=== PATIENT | male | born 1980 | race Caucasian/White ===

== ENCOUNTER → 2019-03-07 13:59 | Outpatient (BNVA) | payer OTHER, SELFPAY | PROVIDERS: Visit Provider Nurse Practitioner Family | DX: Z02.89 Encounter for other administrative examinations (principal); N39.0 Urinary tract infection, site not specified | CPT/HCPCS: 80305 ==

== ENCOUNTER → 2019-06-21 00:01 | Outpatient (BNVA) | payer OTHER, SELFPAY | PROVIDERS: Visit Provider Nurse Practitioner Family | DX: Z12.5 Encounter for screening for malignant neoplasm of prostate (principal); R53.83 Other fatigue; E34.9 Endocrine disorder, unspecified; Z79.899 Other long term (current) drug therapy; Z13.6 Encounter for screening for cardiovascular disorders; E55.9 Vitamin D deficiency, unspecified | CPT/HCPCS: 80053; 80061; 82306; 83036; 83721; 84402; 84403; 84443; 85025; G0103 ==

== ENCOUNTER → 2019-09-03 09:04 | Outpatient (BNVA) | payer OTHER, SELFPAY | PROVIDERS: Visit Provider Nurse Practitioner Family | DX: E29.0 Testicular hyperfunction (principal); J30.89 Other allergic rhinitis | CPT/HCPCS: 36415; 80053; 84403; 85025 ==

== ENCOUNTER 2019-09-06 16:01 | Outpatient (CLI) | payer OTHER, SELFPAY ==
--- NOTE | 2019-09-06 16:45 | MRR_ITS ---
PROCEDURE INFORMATION: Exam: MR Cervical Spine Without Contrast Exam date and time: 09/06/2019 4:51 PM Age: 38 years old Clinical indication: Pain; Cervicalgia; Patient HX: Injuried in 2003, jumped fence, landed wrong; Additional info: M54.2 cervicalgia TECHNIQUE: Imaging protocol: Multiplanar magnetic resonance images of the cervical spine without contrast. COMPARISON: No relevant prior studies available. FINDINGS: Craniocervical junction appears normal. The cervical spine is normal in position and alignment. Cervical spinal cord signal is normal without intrinsic or extrinsic lesions. Disc heights are well-preserved. No evidence of dehydration is seen. Vertebral body marrow signal is unremarkable. No evidence prevertebral or interspinous ligamentous edema. Axial images: C2-C3: There is no significant disc bulge. There is no significant cord compression. There is no neural foraminal or spinal stenosis. C3-C4: There is no significant disc bulge. There is no significant cord compression. There is no neural foraminal or spinal stenosis. C4-C5: There is very small approximately 1 mm focal central protrusion. There is no significant cord compression. There is no neural foraminal or spinal stenosis. C5-C6: There is no significant disc bulge. There is no significant cord compression. There is no neural foraminal or spinal stenosis. C6-C7: There is no significant disc bulge. There is no significant cord compression. There is no neural foraminal or spinal stenosis. C7-T1: There is no significant disc bulge. There is no significant cord compression. There is no neural foraminal or spinal stenosis. MR/MR cervical spin wo con* [id number] IMPRESSION: Essentially unremarkable.
--- NOTE | 2019-09-06 17:30 | MRR_ITS ---
PROCEDURE INFORMATION: Exam: MR Thoracic Spine Without Contrast Exam date and time: 09/06/2019 4:51 PM Age: 38 years old Clinical indication: Pain in thoracic spine; Patient HX: Injuried in 2003, jumped fence, landed wrong; Additional info: M48.04 spinal stenosis, thoracic region TECHNIQUE: Imaging protocol: Multiplanar magnetic resonance images of the thoracic spine without intravenous contrast. COMPARISON: No relevant prior studies available. FINDINGS: Vertebrae: There are multiple small Schmorl's nodes. There is slight anterior wedging L1 with mild superior endplate compression. There is less marked anterior wedging T7 through T10. There is no marrow edema and these are nonacute. No vertebral subluxation. Spinal cord: Spinal cord terminus L1-L2 and appears T1-T2: No significant disc disease. No significant spinal canal stenosis. T2-T3: No significant disc disease. No significant spinal canal stenosis. T3-T4: There is approximately 1 mm right paracentral protrusion. There is no evidence of spinal stenosis or neural foraminal narrowing. T4-T5: There is approximately 1.8 mm left paracentral protrusion with mild left ventral cord flattening. No overall spinal stenosis or neural foraminal narrowing. T5-T6: No significant disc disease. No significant spinal canal stenosis. T6-T7: There is less than 2 mm central protrusion. There is no cord compression. There is no evidence of spinal stenosis or neural foraminal narrowing. T7-T8: There is approximately 1 mm right paracentral protrusion. There is no cord compression. There is no evidence of spinal stenosis or neural foraminal narrowing. T8-T9: Approximately 1 mm central disc protrusion. There is no cord compression. There is no evidence of spinal stenosis or neural foraminal narrowing. T9-T10: Approximately 1 mm right subarticular recess protrusion. There is no cord compression. There is no evidence of spinal stenosis or neural foraminal narrowing. T10-T11: No significant disc disease. No significant spinal canal stenosis. T11-T12: No significant disc disease. No significant spinal canal stenosis. Soft tissues: No evidence prevertebral or interspinous ligamentous edema. There is approximately 7 mm T2 hyperintense rounded area at the T7-T8 level in the right intracostal space, axial image 29. This could be a cyst or small cystic mass. MR/MR thoracic spin wo con* [id number] IMPRESSION: 1. No evidence of acute fracture. No evidence of ligament injury or edema. 2. Small rounded T2 hyperintense lesion right T7-T8 level intracostal space T2 hyperintense lesion may be a cyst or small cystic mass such as neurogenic tumor. 3. Multiple small disc protrude largest T4-T5 causes slight left ventral flattening but no spinal stenosis or neural foraminal narrowing.
== END 2019-09-06 16:02 | disposition home or self-care (01) ==
LOC: RADSHAW 16:08
PROVIDERS: PCP Nurse Practitioner Family; Visit Provider Nurse Practitioner Family
DX: M54.2 Cervicalgia (principal); M48.04 Spinal stenosis, thoracic region; M51.24 Other intervertebral disc displacement, thoracic region
CPT/HCPCS: 72141; 72146

== ENCOUNTER → 2019-09-23 12:00 | Outpatient (BNVA) | payer OTHER, SELFPAY | PROVIDERS: PCP Nurse Practitioner Family; Visit Provider Nurse Practitioner Family | DX: D75.1 Secondary polycythemia (principal) | CPT/HCPCS: 80500; 82607; 82746; 83550; 85025 ==

== ENCOUNTER → 2019-10-24 12:06 | Outpatient (BNVA) | payer OTHER, SELFPAY | PROVIDERS: PCP Nurse Practitioner Family; Visit Provider Nurse Practitioner Family | DX: R03.0 Elevated blood-pressure reading, without diagnosis of hypertension (principal) | CPT/HCPCS: 80053; 84439; 84443; 84481 ==

== ENCOUNTER 2019-11-11 10:03 | Outpatient (CLI) | payer OTHER, SELFPAY ==
--- NOTE | 2019-11-11 10:15 | CT_ITS ---
WS: [id number] CT CHEST TECHNIQUE: Contrast enhanced CT of the chest with coronal and sagittal reformatted images. CLINICAL INFORMATION: ABNORMAL MRI, BACK PAIN ,THORACIC COMPARISON: None. DLP: 1077.[address] scans at [facility] use at least one of these dose optimization techniques: automat ed exposure control; mA and/or kV adjustment per patient size (includes targeted exams where dose is matched to clinical indication); or iterative reconstruction. FINDINGS: Mild chronic emphysematous changes. Normal caliber thoracic aorta. No mediastinal or hilar lymphadeno sindy. Normal thyroid gland. No axillary lymphadenopathy. Adrenal glands are normal. Diffuse fatty infiltration of the liver. Normal GE junction. No axillary l ymphadenopathy. Mild thoracic kyphosis. Mild spondylitic changes. No acute compression fractures. No significant spin al canal narrowing. CT/CT chest w con* [id number] IMPRESSION: 1. Mild thoracic kyphosis. No acute compression. 2. No high-grade central canal stenosis. 3. A few Schmorl's nodes in the mid and lower thoracic spine. 4. No bony abnormalities to correspond to the previously described small T2 hy perintense lesion at T7-8 likely benign. 5. Lungs are well aerated. No acute pulmonary infiltrates. 6. No mediastinal or hilar lymphadenopathy.
[2019-11-11] MEDS: iohexol 300 mg/mL 100 mL Btl IV (10:58)
== END 2019-11-11 10:04 | disposition home or self-care (01) ==
PROVIDERS: Family Provider Nurse Practitioner Family; PCP Nurse Practitioner Family; Visit Provider Nurse Practitioner Family
DX: R93.89 Abnormal findings on diagnostic imaging of other specified body structures (principal); M40.204 Unspecified kyphosis, thoracic region; M51.44 Schmorl's nodes, thoracic region
CPT/HCPCS: 71260; Q9967

== ENCOUNTER → 2020-02-21 10:25 | Outpatient (BNVA) | payer OTHER, SELFPAY | PROVIDERS: Family Provider Nurse Practitioner Family; PCP Nurse Practitioner Family; Visit Provider Nurse Practitioner Family | DX: D75.1 Secondary polycythemia (principal); E34.9 Endocrine disorder, unspecified; E29.1 Testicular hypofunction | CPT/HCPCS: 84402; 84403; 85025 ==

== ENCOUNTER → 2020-12-28 10:03 | Outpatient (BNVA) | payer OTHER, SELFPAY | PROVIDERS: Family Provider Nurse Practitioner Family; PCP Nurse Practitioner Family; Referring Provider Nurse Practitioner; Visit Provider Specialist | DX: M25.512 Pain in left shoulder (principal) | CPT/HCPCS: 73030 ==

== ENCOUNTER 2021-01-26 14:28 | Outpatient (CLI) | payer OTHER, SELFPAY ==
--- NOTE | 2021-01-26 15:15 | MR_ITS ---
WS: [id number] MRI LEFT SHOULDER NONCONTRAST TECHNIQUE: Sagittal T2, coronal T1, T2 and proton density imaging. Axial gradient PDE imaging. CLINICAL INFORMATION: M25.519 - Pain in unspecified shoulder COMPARISON: None. FINDINGS: Moderate degenerative arthritis AC joint with synovial thickening and mild edema. Small amount of flu id in the AC joint. Minimal downsloping acromion. Slight subacromial spurring. Distal supraspinatus i s normal in appearance. Normal infraspinatus. Normal teres minor. Normal subscapularis tendon. Normal biceps tendon in the bicipital groove. Normal biceps labral anchor. Tiny intrasubstance tear involving the intra-articular biceps tendon. Ot herwise normal intra-articular biceps tendon. Subchondral cystic change involving the posterior infer ior glenoid. Degenerative arthritis glenohumeral joint. Glenoid labrum appears grossly normal. MR/MR shoulder LT wo con* [id number] IMPRESSION: 1. Moderate degenerative arthritis at the AC joint with mild edema and mild do wnsloping acromion. Slight subacromial spurring. 2. Normal rotator cuff. 3. Normal biceps tendon in the bicipital groove. 4. Tiny intrasubstance tear involving the intra-articular biceps tendon. 5. Normal biceps labral anchor. 6. Degenerative arthritis at the glenohumeral joint with subchondral cystic ch dean involving the posterior inferior glenoid.
--- NOTE | 2021-01-26 16:00 | MR_ITS ---
WS: [id number] MRI RIGHT SHOULDER NONCONTRAST TECHNIQUE: Sagittal T2, coronal T1, T2 and proton density imaging. Axial gradient PDE imaging. CLINICAL INFORMATION: M25.519 - Pain in unspecified shoulder COMPARISON: None. FINDINGS: Mild degenerative arthritis at the AC joint. Minimal downsloping acromion. Slight subacromial spurrin g. Tendinopathy in the distal supraspinatus. Normal infraspinatus. Normal teres minor. Normal subscap ularis. Normal biceps tendon in the bicipital groove. Normal subscapularis tendon. Normal biceps labral anchor. Glenoid labrum appears grossly normal.Subc hondral cystic change involving the posterior superior glenoid. MR/MR shoulder RT wo con* [id number] IMPRESSION: 1. Mild degenerative arthritis at the AC joint with mild downsloping acromion. Slight subacromial spurring. 2. Tendinopathy in the distal supraspinatus. Rotator cuff is otherwise normal in appearance. 3. Normal biceps tendon in the bicipital groove. Normal intra-articular biceps tendon. 4. Mild degenerative narrowing of the glenohumeral joint. Normal bone marrow s ignal in the glenoid and humeral head. 5. Subchondral cystic change involving the posterior superior glenoid.
== END 2021-01-26 14:29 | disposition home or self-care (01) ==
LOC: RADSHAW 14:32
PROVIDERS: Family Provider Nurse Practitioner Family; PCP Nurse Practitioner Family; Visit Provider Specialist
DX: M19.012 Primary osteoarthritis, left shoulder (principal); M19.011 Primary osteoarthritis, right shoulder; S46.212A Strain of muscle, fascia and tendon of other parts of biceps, left arm, initial encounter; X58.XXXA Exposure to other specified factors, initial encounter
CPT/HCPCS: 73221

== ENCOUNTER → 2021-02-15 13:58 | Outpatient (BNVA) | payer OTHER, SELFPAY | PROVIDERS: Family Provider Nurse Practitioner Family; PCP Nurse Practitioner Family; Referring Provider Nurse Practitioner; Visit Provider Podiatrist Foot & Ankle Surgery | DX: M25.572 Pain in left ankle and joints of left foot (principal); M25.872 Other specified joint disorders, left ankle and foot | CPT/HCPCS: 73610 ==

== ENCOUNTER 2021-03-22 09:09 | Outpatient (CLI) | payer OTHER, SELFPAY ==
--- NOTE | 2021-03-22 09:16 | MR_ITS ---
WS: [id number] MRI LEFT ANKLE NONCONTRAST TECHNIQUE: Sagittal proton density, sagittal STIR, axial proton density, axial T1, axial T2 fat sat, coronal proton density, coronal proton density fat sat, coronal T2 fat sat. CLINICAL INFORMATION: pain COMPARISON: Radiograph February 15, 2021 FINDINGS: Normal anatomic alignment. Normal ankle mortise. Chronic dystrophic calcification about the medial ma lleolus unchanged since prior radiograph. Normal talar dome. Small amount of edema in the medial mall eolus suspicious for tiny microavulsion fracture and/or contusion. No visualized bony fragments. Norm al lateral malleolus. Normal bone marrow signal in the calcaneus. Normal cuboid. Base of the 5th metatarsal is normal. Norm al navicular. Normal talonavicular articulation. Anterior process of the calcaneus is normal. Normal cuneiforms. Normal Achilles tendon. Tenosynovitis along the peroneal tendon sheaths. Normal extensor and flexor c ompartment tendons. Small ankle joint effusion. Normal plantar soft tissues. IMPRESSION 1. Normal ankle mortise. Normal talar dome. 2. Tiny amount of edema tip of the medial malleolus suspicious for a tiny miniscule avulsion and/or contusion. Normal lateral malleolus. No visualized bony fragments. 3. Small ankle effusion. 4. Tenosynovitis along the peroneal tendon sheath. 5. Normal extensor and flexor compartment tendons. 6. No other significant findings.
== END 2021-03-22 09:10 | disposition home or self-care (01) ==
PROVIDERS: PCP Nurse Practitioner Family; Visit Provider Podiatrist Foot & Ankle Surgery
DX: M25.472 Effusion, left ankle (principal); M65.872 Other synovitis and tenosynovitis, left ankle and foot
CPT/HCPCS: 73721

== ENCOUNTER 2021-04-13 06:00 | Outpatient (RCR) | payer OTHER, SELFPAY | END 2021-05-13 23:59 | disposition home or self-care (01) | LOC: WPT 06:00 | PROVIDERS: PCP Nurse Practitioner Family; Referring Provider Specialist; Visit Provider Specialist | DX: M25.512 Pain in left shoulder (principal); M25.551 Pain in right hip | CPT/HCPCS: 97110; 97112; 97140; 97161; 97530 ==

== ENCOUNTER → 2023-06-12 14:52 | Outpatient (BNVA) | payer OTHER, SELFPAY | PROVIDERS: PCP Nurse Practitioner Family; Visit Provider Nurse Practitioner Family | DX: S61.221A Laceration with foreign body of left index finger without damage to nail, initial encounter (principal); X58.XXXA Exposure to other specified factors, initial encounter | CPT/HCPCS: 73140 ==